=== PATIENT | male | born 1940 | race Caucasian/White ===

== ENCOUNTER 2023-09-10 11:00 | Outpatient (RCR) | payer MEDICARE, SELFPAY ==
[2023-09-06 07:13] VITALS: BP 139/79; PULSE 86
== END 2023-10-01 13:34 | disposition home or self-care (01) ==
LOC: HO.PT 11:00
PROVIDERS: PCP Internal Medicine; Visit Provider Otolaryngology
DX: H81.10 Benign paroxysmal vertigo, unspecified ear (principal)
CPT/HCPCS: 95992; 97161